=== PATIENT | female | born 1955 | race American Indian/Alaskan Native ===

== ENCOUNTER 2018-10-31 22:03 | Inpatient (IN) | payer OTHER ==
[2018-10-31] MEDS ORDERED: ASPIRIN PO ONE (23:56)
--- NOTE | 2018-11-01 00:48 | XRay Report ---
PROCEDURE: XR CHEST 1V AP TECHNIQUE: Chest radiograph single view. HISTORY: Chest Pain COMPARISONS: None . FINDINGS: Heart: Normal. Mediastinum/Vessels: Normal. Lungs/Pleural space: Normal. Bony thorax: No acute osseous abnormality. Life support devices: None. IMPRESSION: No acute cardiopulmonary abnormality. This document is electronically signed by Jessica Ayala DO., November 01 2018 12:46:02 AM ET
[2018-11-01 00:50] LABS: Calcium 8.9 mg/dL (8.4-10.2)
[2018-11-01 01:13] LABS: Chol/HDL Ratio 3.84 %
[2018-11-01 02:01] LABS: Hematocrit 35.6 % (30.3-42.9); Hemoglobin 12.5 gm/dl (10.1-14.3); Mean Corpuscular HGB Conc 35 % (30-34); Mean Corpuscular Volume 90 fl (79-97); Platelet Count 401 K/mm3 (140-440); Red Blood Count 3.94 M/mm3 (3.65-5.03); Red Cell Distribution Width 15.8 % (13.2-15.2)
[2018-11-01] MEDS ORDERED: ZOFRAN IV ONE (03:35)
[2018-11-01] MEDS ORDERED: SUBLIMAZE IV ONE (03:35)
[2018-11-01] MEDS ORDERED: PLAVIX PO ONE (03:35)
--- NOTE | 2018-11-01 03:45 | Emergency Department Report ---
HPI - General Chief Complaint: Chest Pain Time Seen by Provider: 11/01/18 03:27 - HPI HPI: Room 24 The patient is a 62-year-old female presenting with a chief complaint of chest pain. The patient states the past 3 weeks she's had left-sided chest pain d escribed as a heaviness. The patient states she's had shortness of breath and nausea/vomiting associated with her chest pain. Patient denies diaphoresis. The patient gives her pain a score of 10/10 Location: Left chest Duration: 3 weeks Quality: Heaviness Severity: 10/10 Modifying factors: [see above] Context: [see above] Mode of transportation: [not driving] ED Past Medical Hx - Past Medical History Previous Medical History?: Yes Hx Hypertension: Yes Hx Diabetes: Yes Hx Renal Disease: Yes Additional medical history: Heart problems - Surgical History Past Surgical History?: Yes Hx Appendectomy: Yes Additional Surgical History: Colostomy - Family History Family history: no significant - Social History Smoking Status: Never Smoker Substance Use Type: None (denies illicit drug use) ED Review of Systems ROS: Stated complaint: PAIN IN CHEST/DIZZY/FALLING Other details as noted in HPI Constitutional: denies: diaphoresis Eyes: denies: eye pain ENT: denies: throat pain Respiratory: shortness of breath Cardiovascular: chest pain Endocrine: no symptoms reported Gastrointestinal: nausea, vomiting Genitourinary: denies: dysuria Musculoskeletal: denies: back pain Neurological: denies: headache Physical Exam - Physical Exam Vital Signs: Vital Signs 10/31/18 23:44 Temperature 97.3 F L Pulse Rate 72 Respiratory 20 Rate Blood Pressure 108/54 O2 Sat by Pulse 96 Oximetry Physical Exam: GENERAL: The patient is well-developed thin elderly woman lying on stretcher not appearing to be in acute distress HEENT: Normocephalic. Atraumatic. Extraocular motions are intact. Patient has moist mucous membranes. NECK: Supple. Trachea midline CHEST/LUNGS: Clear to auscultation. There is no respiratory distress noted. HEART/CARDIOVASCULAR: Regular. There is no tachycardia. There is no gallop rub or murmur. ABDOMEN: Abdomen is soft, nontender. Patient has normal bowel sounds. There is no abdominal distention. SKIN: There is no rash. There is no edema. There is no diaphoresis. NEURO: The patient is awake, alert, and oriented. The patient is cooperative. The patient has normal speech MUSCULOSKELETAL: There is no evidence of acute injury. ED Course Vital Signs 10/31/18 23:44 Temperature 97.3 F L Pulse Rate 72 Respiratory 20 Rate Blood Pressure 108/54 O2 Sat by Pulse 96 Oximetry ED Medical Decision Making - Lab Data Result diagrams: 11/01/18 00:02 11/01/18 00:02 Laboratory Tests 11/01/18 11/01/18 11/01/18 00:02 00:02 00:04 WBC 3.6 L RBC 3.94 Hgb 12.5 Hct 35.6 MCV 90 MCH 32 MCHC 35 H RDW 15.8 H Plt Count 401 Lymph % (Auto) Web Art Director Woodruff % (Auto) Web Art Director Eos % (Auto) Web Art Director Baso % (Auto) Web Art Director Lymph # Web Art Director Woodruff # Web Art Director Eos # Web Art Director Baso # Web Art Director Seg Neutrophils % Web Art Director Seg Neutrophils # Web Art Director Sodium 130 L Potassium 5.0 Chloride 96.3 L Carbon Dioxide 21 L Anion Gap 18 BUN 38 H Creatinine 1.5 H Estimated GFR 43 BUN/Creatinine Ratio 25 Glucose 304 H POC Glucose 282 H Calcium 8.9 Troponin T 0.066 H Triglycerides 261 H Cholesterol 227 H LDL Cholesterol Direct 141 H HDL Cholesterol 59 Cholesterol/HDL Ratio 3.84 - EKG Data -: EKG Interpreted by Me EKG shows normal: sinus rhythm Rate: normal - EKG Data When compared to previous EKG there are: previous EKG unavailable Interpretation: nonspecific ST-T wave kendall, other (left bundle branch block) - Radiology Data Radiology results: report reviewed (chest x-ray), image reviewed (chest x-ray) interpreted by me: Chest x-ray-no focal infiltrates, no pneumothorax Findings [facility] [address] [place] [address] XRay Report Signed Patient: JOSE MIGUEL DELACRUZ MR#: [id number] : 1955 Acct:[id number] Age/Sex: 62 / F ADM Date: 10/31/18 Loc: ED Attending Dr: Ordering Physician: PHONG MORALES MD Date of Service: 10/31/18 Procedure(s): XR chest 1V ap Accession Number(s): [id number] cc: PHONG MORALES MD Fluoro Time In Minutes: PROCEDURE: XR CHEST 1V AP TECHNIQUE: Chest radiograph single view. HISTORY: Chest Pain COMPARISONS: None . FINDINGS: Heart: Normal. Mediastinum/Vessels: Normal. Lungs/Pleural space: Normal. Bony thorax: No acute osseous abnormality. Life support devices: None. IMPRESSION: No acute cardiopulmonary abnormality. This document is electronically signed by Jessica Ayala DO., November 01 2018 12:46:02 AM ET Transcribed By: [facility] [place] Dictated By: JESSICA AYALA MD Electronically Authenticated By: JESSICA AYALA MD Signed Date/Time: 11/01/1847 DD/ TD/TT: 11/01/1828 - Differential Diagnosis ACS, pericarditis, GERD Critical care attestation.: If time is entered above; I have spent that time in minutes in the direct care of this critically ill patient, excluding procedure time. ED Disposition Clinical Impression: Chest pain, Elevated troponin Disposition: -09 OP ADMIT IP TO THIS HOSP Is pt being admited?: Yes Does the pt Need Aspirin: No Condition: Fair Instructions: Chest Pain (ED) Referrals: PRIMARY CARE, [Primary Care Provider] - 3-5 Days Time of Disposition: 03:50 (hospitalist paged (Dr. Kassy Valentin))
[2018-11-01] MEDS ORDERED: ASPIRIN ONE (04:06)
[2018-11-01] MEDS ORDERED: SODIUM CHLORIDE FLUSH SYRINGE 10 ML IV PRN (05:39)
[2018-11-01] MEDS ORDERED: D50W (25GM) Syringe IV PRN ×2 (05:39→05:54)
[2018-11-01] MEDS ORDERED: TYLENOL PO PRN (05:39)
--- NOTE | 2018-11-01 05:54 | History and Physical Report ---
History of Present Illness Date of examination: 11/01/18 History of present illness: 62-year-old history of hypertension, diabetes comes emergency room with complaints of abdominal pain and chest pain that started 3 days ago. Describes chest pain as sharp, intermittent over 10 minutes, in the left chest, no radiation, intensity 5/10, cannot identify exacerbating or relieving factors. Admit to nausea vomiting, shortness of breath. She states she had diarrhea but that has not been resolved. Also complained of abdominal pain in the mid Abdomen, sharp, intermittent, never this along the muscular, no radiation 6/10. Review of systems Constitutional: no weight loss, chills, fever Ears, eyes, nose, mouth and throat: no nasal congestion, no nasal discharge, no sinus pressure, no vision change, no red eye. Neck: No neck pain or rigidity. Cardiovascular: no palpitations, chest pain Respiratory: no cough, shortness of breath Gastrointestinal: no hematochezia, abdominal pain Genitourinary : no frequency , no hematuria Musculoskeletal: no joint swelling or muscle ache Integumentary: no rash, no pruritis Neurological: no parathesias, no focal weakness Endocrine: no cold or heat intolerance, no polyuria or polydipsia Hematologic/Lymphatic: no easy bruising, no easy bleeding, no gland swelling Allergic/Immunologic: no urticaria, no angioedema. PAST MEDICAL HISTORY: hypertension, diabetes PAST SURGICAL HISTORY: Appendectomy, colostomy SOCIAL HISTORY: Denies alcohol, drugs, tobacco FAMILY HISTORY: Hypertension Medications and Allergies Allergies Allergy/AdvReac Type Severity Reaction Status Date / Time No Known Allergies Allergy Verified 11/01/18 03:28 Active Meds: Active Medications Acetaminophen (Tylenol) 650 mg PO Q4H PRN PRN Reason: Pain MILD(1-3)/Fever >100.5/MCCOY Dextrose (D50w (25gm) Syringe) 50 ml IV PRN PRN PRN Reason: Hypoglycemia Ondansetron HCl (Zofran) 4 mg IV Q8H PRN PRN Reason: Nausea And Vomiting Sodium Chloride (Sodium Chloride Flush Syringe 10 Ml) 10 ml IV BID MAGEN Sodium Chloride (Sodium Chloride Flush Syringe 10 Ml) 10 ml IV PRN PRN PRN Reason: LINE FLUSH Exam - Physical Exam Narrative exam: General Apperance: The patient lying in bed, breathing comfortable HEENT: Normocephalic, atraumatic. Pupils equally round and reactive to light, EOMI, no sclericterus or JVD or thyromegaly or nodule. , no carotid bruit, mucous membranes moist, no exudate or erythema Heart: S1-S2, regular is rhythm Lungs: Clear to auscultation bilaterally, breathing comfortable Abdomen: Positive bowel sounds, soft, nontender, nondistended, no organomegaly Extremities: No edema cyanosis clubbing Skin: no rash, nodule, warm and dry Neuro: cranial nerves 2-12 intact, speech is fluent, motor/sensory intact - Constitutional Vitals: Temp Pulse Resp BP Pulse Ox 97.3 F L 77 13 137/79 96 10/31/18 23:44 11/01/18 04:46 11/01/18 04:46 11/01/18 04:46 10/31/18 23:44 Results - Labs CBC & Chem 7: 11/01/18 00:02 11/01/18 00:02 Labs: Abnormal lab results 11/01/18 11/01/18 11/01/18 Range/Units 00:02 00:02 00:04 WBC 3.6 L (4.5-11.0) K/mm3 MCHC 35 H (30-34) % RDW 15.8 H (13.2-15.2) % Sodium 130 L (137-145) mmol/L Chloride 96.3 L (98-107) mmol/L Carbon Dioxide 21 L (22-30) mmol/L BUN 38 H (7-17) mg/dL Creatinine 1.5 H (0.7-1.2) mg/dL Glucose 304 H (65-100) mg/dL POC Glucose 282 H (70-105) Troponin T 0.066 H (0.00-0.029) ng/mL Triglycerides 261 H (2-149) mg/dL Cholesterol 227 H (50-199) mg/dL LDL Cholesterol Direct 141 H (50-130) mg/dL 11/01/18 Range/Units 03:13 WBC (4.5-11.0) K/mm3 MCHC (30-34) % RDW (13.2-15.2) % Sodium (137-145) mmol/L Chloride (98-107) mmol/L Carbon Dioxide (22-30) mmol/L BUN (7-17) mg/dL Creatinine (0.7-1.2) mg/dL Glucose (65-100) mg/dL POC Glucose (70-105) Troponin T 0.064 H (0.00-0.029) ng/mL Triglycerides (2-149) mg/dL Cholesterol (50-199) mg/dL LDL Cholesterol Direct (50-130) mg/dL - Imaging and Cardiology EKG: image reviewed Chest x-ray: report reviewed Assessment and Plan Assessment Abdominal pain Chest pain Hypertension Diabetes Acute renal insufficiency Plan Admit to medicine Check cardiac enzymes, consult cardiology obtain CAT scan of the abdomen and pelvis Start IV fluid, Percocet Check fingersticks initiate insulin sliding scale DVT prophylaxis
[2018-11-01 06:20] LABS: Creatine Kinase MB 5.8 ng/mL (0.0-4.0)
--- NOTE | 2018-11-01 06:25 | Cat Scan Report ---
PROCEDURE: CT ABDOMEN PELVIS WO CON TECHNIQUE: Routine axial imaging was obtained of the abdomen and pelvis without oral or IV contrast. Sagittal and coronal reconstructions were reviewed. HISTORY: abd pain COMPARISONS: None FINDINGS: The study is limited without IV and oral contrast-enhanced. There is elevation of left hemidiaphragm. There are no infiltrates or effusions in the lung bases. The liver, gallbladder and biliary tree appear normal. The pancreas, spleen and adrenal glands appear normal. The kidneys reveal moderate left-sided hydronephrosis. Stones are not seen in either kidney. The ureters cannot be followed into the pelvis because of a limited amount of surrounding fat in the tissues. There are small calcifications in the pelvis. An occult stone in the distal left ureter can not entirely be ruled out. The bowel loops are not distended. There is a large amount of retained feces in the colon. The append ix cannot be seen. In the pelvis the bladder reveals mild generalized wall thickening. Underlying cys titis cannot be exclude. The uterus appears normal. The skeletal structures do not show any acute kendall nges. IMPRESSION: Moderate left-sided hydronephrosis as described. The distal left ureter cannot be followed into the p alber[place]. An obstructing stone in the distal left ureter cannot entirely be ruled out. Renal sonography including evaluation of bladder to look for ureteral jets would be helpful for further evaluation. Generalized bladder wall thickening. Underlying cystitis cannot be excluded.. This document is electronically signed by Bryant Dasilva MD., November 01 2018 06:23:01 AM ET
[2018-11-01] MEDS: HumaLOG SUB-Q SCH ×4 (06:31→23:50)
[2018-11-01] MEDS: SODIUM CHLORIDE FLUSH SYRINGE 10 ML IV SCH ×2 (10:01→21:45)
--- NOTE | 2018-11-01 12:58 | Event Note ---
Date: 11/01/18 Cardiology note dictated #1 chest pain atypical #2 abdominal pain nausea and vomiting evaluation in progress #3 hypertension #4 diabetes #5 hyperlipidemia #6 abnormal troponin #7 renal insufficiency We'll obtain a echocardiogram for further cardiac evaluation. Mild elevation of troponin in the face of her abnormal renal function is of questionable significance. Once his abdominal symptoms improved will consider obtaining a nuclear stress test for further ischemic evaluation. Thank you Dr. MILKA Hendricks
[2018-11-01 14:06] LABS: Creatine Kinase MB 5.7 ng/mL (0.0-4.0)
[2018-11-01] MEDS: NACL 0.9% 1000 ML 1,000 ML IV SCH (14:40)
[2018-11-01] MEDS: ZOFRAN IV PRN (14:52)
--- NOTE | 2018-11-01 15:51 | Event Note ---
Date: 11/01/18 Patient was admitted this morning with abdominal pain in chest pain Underwent CT abdomen and pelvis, revealed Lt hydronephrosis, possible obstructing stone in the distal left ureter, generalized bladder wall thickening, possible underlying cystitis. Patient was seen by cardiology, workup in progress Patient is chronically ill looking, emaciated, cachectic In mild distress Vital signs reviewed. 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[employer]; alert awake oriented 3 nonfocal Psych; normal mood cooperative Musculoskeletal; no deformity Skin; no rash or lesions Assessment and plan; --Left hydronephrosis/possible left ureteric stone; renal ultrasound, IV fluids, urology consult --Acute renal failure; creatinine 1.5, unknown baseline Obstructive uropathy, closely monitor --Chest pain/non-ST elevation MN; Continue current cardiac medications Cardiology evaluation noted and appreciated Follow cardiac workup --Severe malnutrition; Nutrition supplements, nutrition consult --Hypertension; management antihypertensives When necessary medications --Type 2 diabetes mellitus; Accu-Cheks sliding-scale coverage Patient is nothing by mouth, we will add long-acting insulin when able to eat Check A1c --Dyslipidemia; patient is nothing by mouth now Start statin --DVT prophylaxis; SCDs --Full CODE STATUS; Monitor patient closely and adjust management as needed Follow cardiology, hematology recommendations. Plan of care reviewed with the patient and her Nurse Advance care plan 32 minutes
--- NOTE | 2018-11-01 17:18 | Consultation ---
History of Present Illness - Reason for Consult Consult date: 11/01/18 lower abdominal pain - History of Present Illness 62-year-old history of hypertension, diabetes comes emergency room with co mplaints of abdominal pain and chest pain that started 3 days ago. Describes chest pain as sharp, intermittent over 10 minutes, in the left chest, no radiation, intensity 5/10, cannot identify exacerbating or relieving factors. Admit to nausea vomiting, shortness of breath. She states she had diarrhea but that has not been resolved. Also complained of abdominal pain in the mid Abdomen, sharp, intermittent, never this along the muscular, no radiation 6/10. The patient reports to me that she has had pain in her lower abdomen for 2 days with associated dysuria. CT demonstrates a bladder which has findings suggestive of a neurogenic bladder or cystitis. She has left-sided hydronephrosis which I suspect is chronic. Review of systems Constitutional: no weight loss, chills, fever Ears, eyes, nose, mouth and throat: no nasal congestion, no nasal discharge, no sinus pressure, no vision change, no red eye. Neck: No neck pain or rigidity. Cardiovascular: no palpitations, chest pain Respiratory: no cough, shortness of breath Gastrointestinal: no hematochezia, abdominal pain Genitourinary : no frequency , no hematuria Musculoskeletal: no joint swelling or muscle ache Integumentary: no rash, no pruritis Neurological: no parathesias, no focal weakness Endocrine: no cold or heat intolerance, no polyuria or polydipsia Hematologic/Lymphatic: no easy bruising, no easy bleeding, no gland swelling Allergic/Immunologic: no urticaria, no angioedema. PAST MEDICAL HISTORY: hypertension, diabetes PAST SURGICAL HISTORY: Appendectomy, colostomy SOCIAL HISTORY: Denies alcohol, drugs, tobacco FAMILY HISTORY: Hypertension Medications and Allergies Allergies Allergy/AdvReac Type Severity Reaction Status Date / Time No Known Allergies Allergy Verified 11/01/18 03:28 Home Medications Medication Instructions Recorded Confirmed Last Taken Type No Known Home Medications [No 11/01/18 11/01/18 Unknown History Reported Home Medications] Active Meds: Active Medications Acetaminophen (Tylenol) 650 mg PO Q4H PRN PRN Reason: Pain MILD(1-3)/Fever >100.5/MCCOY Aspirin (Aspirin) 325 mg PO QDAY MAGEN Atorvastatin Calcium (Lipitor) 40 mg PO QHS MAGEN Dextrose (D50w (25gm) Syringe) 50 ml IV PRN PRN PRN Reason: Hypoglycemia Enoxaparin Sodium (Lovenox) 30 mg SUB-Q QDAY MAGEN Hydralazine HCl (Apresoline) 10 mg IV Q4HR PRN PRN Reason: Hypertension Sodium Chloride (Nacl 0.9% 1000 Ml) 1,000 mls @ 100 mls/hr IV DIRECT MAGEN Last Admin: 11/01/18 14:40 Dose: 100 mls/hr Documented by: Insulin Human Lispro (Humalog) 0 unit SUB-Q Q6HR [facility]; Protocol Last Admin: 11/01/18 13:54 Dose: Not Given Documented by: Metoprolol Tartrate (Lopressor) 25 mg PO BID [facility] Morphine Sulfate (Morphine) 1 mg IV Q6H PRN PRN Reason: Pain, Moderate (4-6) Ondansetron HCl (Zofran) 4 mg IV Q8H PRN PRN Reason: Nausea And Vomiting Last Admin: 11/01/18 14:52 Dose: 4 mg Documented by: Sodium Chloride (Sodium Chloride Flush Syringe 10 Ml) 10 ml IV BID [facility] Last Admin: 11/01/18 10:01 Dose: 10 ml Documented by: Sodium Chloride (Sodium Chloride Flush Syringe 10 Ml) 10 ml IV PRN PRN PRN Reason: LINE FLUSH Review of Systems All systems: negative (see HPI) Exam - Constitutional Vitals: Temp Pulse Resp BP Pulse Ox 97.6 F 67 20 175/97 96 11/01/18 12:17 11/01/18 16:23 11/01/18 16:23 11/01/18 12:17 10/31/18 23:44 General appearance: Present: no acute distress - EENT Eyes: Present: EOM intact ENT: hearing intact - Respiratory Respiratory effort: normal - Abdominal General gastrointestinal: Present: tender (pelvic discomfort) - Psychiatric Psychiatric: appropriate mood/affect, cooperative Results - Labs CBC & Chem 7: 11/01/18 00:02 11/01/18 00:02 Labs: Abnormal lab results 11/01/18 11/01/18 11/01/18 Range/Units 00:02 00:02 00:04 WBC 3.6 L (4.5-11.0) K/mm3 MCHC 35 H (30-34) % RDW 15.8 H (13.2-15.2) % Sodium 130 L (137-145) mmol/L Chloride 96.3 L (98-107) mmol/L Carbon Dioxide 21 L (22-30) mmol/L BUN 38 H (7-17) mg/dL Creatinine 1.5 H (0.7-1.2) mg/dL Glucose 304 H (65-100) mg/dL POC Glucose 282 H (70-105) CK-MB (CK-2) (0.0-4.0) ng/mL CK-MB (CK-2) Rel Index (0-4) Troponin T 0.066 H (0.00-0.029) ng/mL Triglycerides 261 H (2-149) mg/dL Cholesterol 227 H (50-199) mg/dL LDL Cholesterol Direct 141 H (50-130) mg/dL 11/01/18 11/01/18 11/01/18 Range/Units 03:13 05:45 12:18 WBC (4.5-11.0) K/mm3 MCHC (30-34) % RDW (13.2-15.2) % Sodium (137-145) mmol/L Chloride (98-107) mmol/L Carbon Dioxide (22-30) mmol/L BUN (7-17) mg/dL Creatinine (0.7-1.2) mg/dL Glucose (65-100) mg/dL POC Glucose 186 H (70-105) CK-MB (CK-2) 5.8 H (0.0-4.0) ng/mL CK-MB (CK-2) Rel Index 6.5 H (0-4) Troponin T 0.064 H 0.078 H D (0.00-0.029) ng/mL Triglycerides (2-149) mg/dL Cholesterol (50-199) mg/dL LDL Cholesterol Direct (50-130) mg/dL 11/01/18 Range/Units 12:39 WBC (4.5-11.0) K/mm3 MCHC (30-34) % RDW (13.2-15.2) % Sodium (137-145) mmol/L Chloride (98-107) mmol/L Carbon Dioxide (22-30) mmol/L BUN (7-17) mg/dL Creatinine (0.7-1.2) mg/dL Glucose (65-100) mg/dL POC Glucose (70-105) CK-MB (CK-2) 5.7 H (0.0-4.0) ng/mL CK-MB (CK-2) Rel Index 9.3 H (0-4) Troponin T 0.084 H (0.00-0.029) ng/mL Triglycerides (2-149) mg/dL Cholesterol (50-199) mg/dL LDL Cholesterol Direct (50-130) mg/dL - Imaging and Cardiology CT scan - abdomen: report reviewed, image reviewed CT scan - pelvis: report reviewed, image reviewed Assessment and Plan 62-year-old female with pelvic discomfort, dysuria, and left-sided mild hydronephrosis. Recommend Malhotra catheter placement and urine culture with antibiotics. Suspect left-sided hydronephrosis is chronic given the bladder findings. Patient is nontoxic appearing. Given active cardiac issues, recommend renal ultrasound on Sunday. Do not see a reason for urgent intervention. Discussed with urology who agrees with the plan.
--- NOTE | 2018-11-01 17:24 | Consultation ---
History of Present Illness - Reason for Consult Consult date: 11/01/18 - History of Present Illness CC: WINNIE ROPER (NEW PT TO OUR SERVICE) The patient is a 62-year-old female presenting with a chief complaint of chest pain. The patient states the past 3 weeks she's had left-sided chest pain described as a heaviness. The patient states she's had shortness of breath and nausea/vomiting associated with her chest pain. Patient denies diaphoresis. The patient gives her pain a score of 10/10 CTAP (11-01-18) TODAY--LEFT HYDRO(MILD) ABD SOFT - HEALED SURGICAL SCAR A/P CHEST PAIN - DR. ROBERSON ON CONSULT LEFT HYDRO WILL FOLLOW CONSERVATIVELY FOR NOW IR CONSULT - CONSIDER PERC ONLY IF NEEDED URGERNTLY (SPOKE WITH DR. KHAN) RECOMMEND ORTIZ Medications and Allergies Allergies Allergy/AdvReac Type Severity Reaction Status Date / Time No Known Allergies Allergy Verified 11/01/18 03:28 Home Medications Medication Instructions Recorded Confirmed Last Taken Type No Known Home Medications [No 11/01/18 11/01/18 Unknown History Reported Home Medications] Active Meds: Active Medications Acetaminophen (Tylenol) 650 mg PO Q4H PRN PRN Reason: Pain MILD(1-3)/Fever >100.5/MCCOY Aspirin (Aspirin) 325 mg PO QDAY MAGEN Atorvastatin Calcium (Lipitor) 40 mg PO QHS MAGEN Dextrose (D50w (25gm) Syringe) 50 ml IV PRN PRN PRN Reason: Hypoglycemia Enoxaparin Sodium (Lovenox) 30 mg SUB-Q QDAY MAGEN Hydralazine HCl (Apresoline) 10 mg IV Q4HR PRN PRN Reason: Hypertension Sodium Chloride (Nacl 0.9% 1000 Ml) 1,000 mls @ 100 mls/hr IV DIRECT MAGEN Last Admin: 11/01/18 14:40 Dose: 100 mls/hr Documented by: Insulin Human Lispro (Humalog) 0 unit SUB-Q Q6HR MAGEN; Protocol Last Admin: 11/01/18 13:54 Dose: Not Given Documented by: Metoprolol Tartrate (Lopressor) 25 mg PO BID MAGEN Morphine Sulfate (Morphine) 1 mg IV Q6H PRN PRN Reason: Pain, Moderate (4-6) Ondansetron HCl (Zofran) 4 mg IV Q8H PRN PRN Reason: Nausea And Vomiting Last Admin: 11/01/18 14:52 Dose: 4 mg Documented by: Sodium Chloride (Sodium Chloride Flush Syringe 10 Ml) 10 ml IV BID MAGEN Last Admin: 11/01/18 10:01 Dose: 10 ml Documented by: Sodium Chloride (Sodium Chloride Flush Syringe 10 Ml) 10 ml IV PRN PRN PRN Reason: LINE FLUSH Exam - Constitutional Vitals: Temp Pulse Resp BP Pulse Ox 97.6 F 67 20 175/97 96 11/01/18 12:17 11/01/18 16:23 11/01/18 16:23 11/01/18 12:17 10/31/18 23:44 Results - Labs CBC & Chem 7: 11/01/18 00:02 11/01/18 00:02 Labs: Abnormal lab results 11/01/18 11/01/18 11/01/18 Range/Units 00:02 00:02 00:04 WBC 3.6 L (4.5-11.0) K/mm3 MCHC 35 H (30-34) % RDW 15.8 H (13.2-15.2) % Sodium 130 L (137-145) mmol/L Chloride 96.3 L (98-107) mmol/L Carbon Dioxide 21 L (22-30) mmol/L BUN 38 H (7-17) mg/dL Creatinine 1.5 H (0.7-1.2) mg/dL Glucose 304 H (65-100) mg/dL POC Glucose 282 H (70-105) CK-MB (CK-2) (0.0-4.0) ng/mL CK-MB (CK-2) Rel Index (0-4) Troponin T 0.066 H (0.00-0.029) ng/mL Triglycerides 261 H (2-149) mg/dL Cholesterol 227 H (50-199) mg/dL LDL Cholesterol Direct 141 H (50-130) mg/dL 11/01/18 11/01/18 11/01/18 Range/Units 03:13 05:45 12:18 WBC (4.5-11.0) K/mm3 MCHC (30-34) % RDW (13.2-15.2) % Sodium (137-145) mmol/L Chloride (98-107) mmol/L Carbon Dioxide (22-30) mmol/L BUN (7-17) mg/dL Creatinine (0.7-1.2) mg/dL Glucose (65-100) mg/dL POC Glucose 186 H (70-105) CK-MB (CK-2) 5.8 H (0.0-4.0) ng/mL CK-MB (CK-2) Rel Index 6.5 H (0-4) Troponin T 0.064 H 0.078 H D (0.00-0.029) ng/mL Triglycerides (2-149) mg/dL Cholesterol (50-199) mg/dL LDL Cholesterol Direct (50-130) mg/dL 11/01/18 Range/Units 12:39 WBC (4.5-11.0) K/mm3 MCHC (30-34) % RDW (13.2-15.2) % Sodium (137-145) mmol/L Chloride (98-107) mmol/L Carbon Dioxide (22-30) mmol/L BUN (7-17) mg/dL Creatinine (0.7-1.2) mg/dL Glucose (65-100) mg/dL POC Glucose (70-105) CK-MB (CK-2) 5.7 H (0.0-4.0) ng/mL CK-MB (CK-2) Rel Index 9.3 H (0-4) Troponin T 0.084 H (0.00-0.029) ng/mL Triglycerides (2-149) mg/dL Cholesterol (50-199) mg/dL LDL Cholesterol Direct (50-130) mg/dL
[2018-11-01] MEDS: MORPHINE IV PRN (17:44)
[2018-11-01] MEDS: APRESOLINE IV PRN (17:48)
[2018-11-01 19:40] LABS: Bacteria,Urine 3+ /HPF (Negative); Bilirubin,Urine NEG (Negative); Blood,Urine SM (Negative); Color,Urine Yellow (Yellow); Mucus,Urine FEW /HPF; Urobilinogen,Urine < 2.0 mg/dL (<2.0)
[2018-11-01 19:41] LABS: WBC,Urine > 182.0 /HPF (0.0-6.0)
[2018-11-01] MEDS: LOPRESSOR PO SCH (21:44)
--- NOTE | 2018-11-01 23:41 | Consultation ---
CARDIOLOGY EVALUATION HISTORY OF PRESENT ILLNESS: The patient is a 62-year-old female, who is known to have had hypertension and diabetes, came to the Emergency Room complaining of mainly upper abdominal pain and some chest discomfort. The patient is seen for cardiac evaluation because of the chest pain. Chest pain itself is described as occasional sharp pains. It is rather difficult to get historic details from this patient because she does not speak much [place]. Her main complaint is nausea and vomiting as well as abdominal discomfort. REVIEW OF SYSTEMS: Difficult to obtain. Chart is reviewed. PHYSICAL EXAMINATION: GENERAL: Adult chronically ill-appearing female, in no acute distress. She looks much older than the stated age. NECK: Supple. No thyromegaly. Both carotids are palpable. CHEST: Symmetrical. LUNGS: Essentially clear. HEART: S1 and S2 are heard well. ABDOMEN: Soft, nontender. EXTREMITIES: No edema or calf tenderness. LABORATORY DATA: EKG sinus rhythm, left bundle branch block with associated ST-T abnormalities. WBC 3.6, hemoglobin 12.5, hematocrit 35.6. Sodium 130, potassium 5, BUN 38, creatinine 1.5. Blood sugar 186. Troponin is 0.06 and 0.07. LDL 141. IMPRESSION: 1. Atypical chest pain. 2. Abnormal EKG with a left bundle branch block pattern. 3. Abdominal pain, nausea, and vomiting, etiology uncertain. 4. Mild elevation of troponin in the phase of abnormal renal function of questionable significance. The patient is seen for cardiac evaluation. Clinically, cardiac status is satisfactory. PLAN: At this time plan is to obtain echocardiogram for further assessment. Once the abdominal symptoms, nausea and vomiting improve, we may consider nuclear stress test for further cardiac evaluation. The patient will be monitored and followed along with you. Thank you, Dr. Raymond for allowing me to participate in the care of this pleasant lady. JOB# [id number] DUNCAN/AMA MTDEli
[2018-11-02] MEDS: NACL 0.9% 1000 ML 1,000 ML IV SCH ×2 (04:10→14:53)
[2018-11-02] MEDS: HumaLOG SUB-Q SCH ×3 (05:48→17:27)
[2018-11-02 06:21] LABS: Basophils % (Auto) 0.4 % (0.0-1.8); Eosinophils % (Auto) 1.1 % (0.0-4.3); Hematocrit 30.9 % (30.3-42.9); Hemoglobin 11.1 gm/dl (10.1-14.3); Lymphocytes # (Auto) 0.9 K/mm3 (1.2-5.4); Lymphocytes % (Auto) 21.5 % (13.4-35.0); Mean Corpuscular HGB Conc 36 % (30-34); Mean Corpuscular Volume 89 fl (79-97); Monocytes # (Auto) 0.2 K/mm3 (0.0-0.8); Monocytes % (Auto) 5.4 % (0.0-7.3); Red Blood Count 3.47 M/mm3 (3.65-5.03)
[2018-11-02 06:51] LABS: Calcium 8.2 mg/dL (8.4-10.2)
[2018-11-02 07:16] LABS: Platelet Count 398 K/mm3 (140-440)
--- NOTE | 2018-11-02 08:10 | Progress Note ---
Assessment and Plan Assessment and plan: --Chest pain/non-ST elevation OR; Continue current cardiac medications Cardiology following, workup in progress --Left hydronephrosis/possible left ureteric stone; renal ultrasound, IV fluids, follow-up renal Ultrasound Urology and IR evaluation and recommendation appreciated --Acute renal failure; the vasomotor nephropathy Obstructive uropathy,Resolved --Urinary tract infection; IV fluids, empiric IV antibiotics Follow urine cultures --Severe malnutrition; Nutrition supplements, nutrition consult --Mild hyponatremia; normal saline gentle hydration Closely monitor electrolytes --Hypertension; continue antihypertensives When necessary medications --Type 2 diabetes mellitus; Accu-Cheks sliding-scale coverage we will add glipizide, A1c 8.5 --Dyslipidemia; patient is nothing by mouth now Start statin --DVT prophylaxis; SCDs --Full CODE STATUS; History Interval history: Patient seen and examined medical records reviewed Patient feels slightly better, denies any nausea vomiting or abdominal pain Patient is comfortable ,Vital signs noted Hospitalist Physical - Constitutional Vitals: Temp Pulse Resp BP Pulse Ox 97.9 F 64 18 108/74 98 11/02/18 04:09 11/02/18 06:00 11/02/18 04:09 11/02/18 04:09 11/02/18 04:09 General appearance: Present: no acute distress, cachectic, other (comfortable) - EENT Eyes: Present: PERRL, EOM intact - Neck Neck: Present: supple, normal ROM - Respiratory Respiratory effort: normal Respiratory: bilateral: diminished, negative: rales, rhonchi, wheezing - Cardiovascular Rhythm: regular Heart Sounds: Present: S1 & S2 - Extremities Extremities: no ischemia, No edema - Abdominal General gastrointestinal: soft, non-tender, non-distended, normal bowel sounds - Integumentary Integumentary: Present: clear, warm - Psychiatric Psychiatric: appropriate mood/affect, cooperative - Neurologic Neurologic: moves all extremities Results - Labs CBC & Chem 7: 11/02/18 05:52 11/02/18 05:52 Labs: Laboratory Last Values WBC 4.0 K/mm3 (4.5-11.0) L 11/02/18 05:52 RBC 3.47 M/mm3 (3.65-5.03) L 11/02/18 05:52 Hgb 11.1 gm/dl (10.1-14.3) 11/02/18 05:52 Hct 30.9 % (30.3-42.9) 11/02/18 05:52 MCV 89 fl (79-97) 11/02/18 05:52 MCH 32 pg (28-32) 11/02/18 05:52 MCHC 36 % (30-34) H 11/02/18 05:52 RDW 16.0 % (13.2-15.2) H 11/02/18 05:52 Plt Count 398 K/mm3 (140-440) 11/02/18 05:52 Lymph % (Auto) 21.5 % (13.4-35.0) 11/02/18 05:52 Orange % (Auto) 5.4 % (0.0-7.3) 11/02/18 05:52 Eos % (Auto) 1.1 % (0.0-4.3) 11/02/18 05:52 Baso % (Auto) 0.4 % (0.0-1.8) 11/02/18 05:52 Lymph # 0.9 K/mm3 (1.2-5.4) L 11/02/18 05:52 Orange # 0.2 K/mm3 (0.0-0.8) 11/02/18 05:52 Eos # 0.0 K/mm3 (0.0-0.4) 11/02/18 05:52 Baso # 0.0 K/mm3 (0.0-0.1) 11/02/18 05:52 Seg Neutrophils % 71.6 % (40.0-70.0) H 11/02/18 05:52 Seg Neutrophils # 2.8 K/mm3 (1.8-7.7) 11/02/18 05:52 Sodium 132 mmol/L (137-145) L 11/02/18 05:52 Potassium 4.6 mmol/L (3.6-5.0) 11/02/18 05:52 Chloride 98.3 mmol/L (98-107) 11/02/18 05:52 Carbon Dioxide 22 mmol/L (22-30) 11/02/18 05:52 Anion Gap 16 mmol/L 11/02/18 05:52 BUN 38 mg/dL (7-17) H 11/02/18 05:52 Creatinine 1.2 mg/dL (0.7-1.2) 11/02/18 05:52 Estimated GFR 55 ml/min 11/02/18 05:52 BUN/Creatinine Ratio 32 % 11/02/18 05:52 Glucose 208 mg/dL (65-100) H 11/02/18 05:52 POC Glucose 125 (70-105) H 11/02/18 07:56 Hemoglobin A1c 8.5 % (4-6) H 11/02/18 05:52 Calcium 8.2 mg/dL (8.4-10.2) L 11/02/18 05:52 Total Creatine Kinase 61 units/L (30-135) 11/01/18 12:39 CK-MB (CK-2) 5.7 ng/mL (0.0-4.0) H 11/01/18 12:39 CK-MB (CK-2) Rel Index 9.3 (0-4) H 11/01/18 12:39 Troponin T 0.084 ng/mL (0.00-0.029) H 11/01/18 12:39 Triglycerides 261 mg/dL (2-149) H 11/01/18 00:02 Cholesterol 227 mg/dL (50-199) H 11/01/18 00:02 LDL Cholesterol Direct 141 mg/dL (50-130) H 11/01/18 00:02 HDL Cholesterol 59 mg/dL (40-59) 11/01/18 00:02 Cholesterol/HDL Ratio 3.84 % 11/01/18 00:02 Urine Color Yellow (Yellow) 11/01/18 17:31 Urine Turbidity Cloudy (Clear) 11/01/18 17:31 Urine pH 6.0 (5.0-7.0) 11/01/18 17:31 Ur Specific Morris 1.009 (1.003-1.030) 11/01/18 17:31 Urine Protein 100 mg/dl mg/dL (Negative) 11/01/18 17:31 Urine Glucose (UA) Neg mg/dL (Negative) 11/01/18 17:31 Urine Ketones Neg mg/dL (Negative) 11/01/18 17:31 Urine Blood Sm (Negative) 11/01/18 17:31 Urine Nitrite Neg (Negative) 11/01/18 17:31 Urine Bilirubin Neg (Negative) 11/01/18 17:31 Urine Urobilinogen < 2.0 mg/dL (<2.0) 11/01/18 17:31 Ur Leukocyte Esterase Lg (Negative) 11/01/18 17:31 Urine WBC (Auto) > 182.0 /HPF (0.0-6.0) H 11/01/18 17:31 Urine RBC (Auto) 11.0 /HPF (0.0-6.0) 11/01/18 17:31 Urine Bacteria (Auto) 3+ /HPF (Negative) 11/01/18 17:31 Urine WBC Clumps 1+ /HPF 11/01/18 17:31 Urine Mucus Few /HPF 11/01/18 17:31 Active Medications - Current Medications Current Medications: Generic Name Dose Route Start Last Admin Trade Name Freq PRN Reason Stop Dose Admin Acetaminophen 650 mg 11/01/18 05:39 Tylenol PO Q4H PRN Pain MILD(1-3)/Fever >100.5/MCCOY Aspirin 325 mg 11/02/18 10:00 Aspirin PO QDAY [facility] Atorvastatin Calcium 40 mg 11/01/18 22:00 11/01/18 21:44 Lipitor PO 40 mg QHS MAGEN Administration Dextrose 50 ml 11/01/18 05:39 D50w (25gm) Syringe IV PRN PRN Hypoglycemia Enoxaparin Sodium 30 mg 11/02/18 10:00 Lovenox SUB-Q QDAY MAGEN Hydralazine HCl 10 mg 11/01/18 16:15 11/01/18 17:48 Apresoline IV 10 mg Q4HR PRN Administration Hypertension Sodium Chloride 1,000 mls @ 100 mls/hr 11/01/18 07:00 11/02/18 04:10 Nacl 0.9% 1000 Ml IV 100 mls/hr DIRECT MAGEN Administration Ceftriaxone Sodium 2 gm in 100 mls @ 200 mls/hr 11/02/18 10:00 Rocephin/Ns 2 Gm/100 Ml IV Q24HR MAGEN Protocol Insulin Human Lispro 0 unit 11/01/18 06:00 11/02/18 05:48 Humalog SUB-Q 3 unit Q6HR MAGEN Administration Protocol Metoprolol Tartrate 25 mg 11/01/18 22:00 11/01/18 21:44 Lopressor PO 25 mg BID MAGEN Administration Morphine Sulfate 1 mg 11/01/18 14:58 11/01/18 17:44 Morphine IV 1 mg Q6H PRN Administration Pain, Moderate (4-6) Ondansetron HCl 4 mg 11/01/18 05:39 11/01/18 14:52 Zofran IV 4 mg Q8H PRN Administration Nausea And Vomiting Sodium Chloride 10 ml 11/01/18 10:00 11/01/18 21:45 Sodium Chloride Flush Syringe 10 Ml IV 10 ml BID MAGEN Administration Sodium Chloride 10 ml 11/01/18 05:39 Sodium Chloride Flush Syringe 10 Ml IV PRN PRN LINE FLUSH
[2018-11-02] MEDS: LOPRESSOR PO SCH ×2 (10:11→23:08)
[2018-11-02] MEDS: ASPIRIN PO SCH (10:11)
[2018-11-02] MEDS: ROCEPHIN/NS 2 GM/100 ML 2 GM/100 ML BAG IV SCH (10:11)
[2018-11-02] MEDS: LOVENOX SUB-Q SCH (10:11)
[2018-11-02] MEDS: SODIUM CHLORIDE FLUSH SYRINGE 10 ML IV SCH ×2 (10:12→23:10)
--- NOTE | 2018-11-02 10:17 | Progress Note ---
Assessment and Plan Patient appears to be improving. No significant cardiac symptoms. Echocardiogram shows several moderate left ventricular systolic dysfunction EF is 35-40%. Will obtain a nuclear stress test for ischemia evaluation.. - Patient Problems (1) LV dysfunction Current Visit: Yes Status: Acute (2) LBBB (left bundle branch block) Current Visit: Yes Status: Acute (3) Chest pain Current Visit: Yes Status: Acute (4) Elevated troponin Current Visit: Yes Status: Acute Subjective Date of service: 11/02/18 Interval history: Prior developments are noted. Appears to be the abdominal pain is secondary to hydronephrosis. Patient appears to be more comfortable this morning denies any chest pain. Objective Vital Signs Temp Pulse Pulse Resp Resp BP Pulse Ox 11/02/18 08:13 98.1 F 18 130/76 11/02/18 06:00 64 11/02/18 04:09 97.9 F 64 18 108/74 98 11/02/18 00:26 97.4 F L 58 L 18 128/69 99 11/01/18 22:15 97 11/01/18 22:00 77 11/01/18 21:44 75 121/67 11/01/18 21:13 74 20 97 11/01/18 20:01 97.4 F L 74 16 121/67 97 11/01/18 17:48 68 164/87 11/01/18 17:44 20 11/01/18 16:23 67 20 11/01/18 16:22 20 11/01/18 12:17 97.6 F 18 175/97 11/01/18 11:49 97.8 F 11/01/18 11:40 98.1 F 11/01/18 11:30 70 12 151/88 11/01/18 11:00 73 13 102/51 11/01/18 10:30 70 13 128/81 - Physical Examination General: No Apparent Distress Neck: Positive: neck supple Cardiac: Positive: Regular Rhythm Lungs: Positive: clear to auscultation Abdomen: Positive: Soft - Labs and Meds Cardiac Enzymes 11/01/18 Range/Units 12:39 CK-MB (CK-2) 5.7 H (0.0-4.0) ng/mL CBC 11/02/18 Range/Units 05:52 WBC 4.0 L (4.5-11.0) K/mm3 RBC 3.47 L (3.65-5.03) M/mm3 Hgb 11.1 (10.1-14.3) gm/dl Hct 30.9 (30.3-42.9) % Plt Count 398 (140-440) K/mm3 Lymph # 0.9 L (1.2-5.4) K/mm3 Quay # 0.2 (0.0-0.8) K/mm3 Eos # 0.0 (0.0-0.4) K/mm3 Baso # 0.0 (0.0-0.1) K/mm3 Comprehensive Metabolic Panel 11/02/18 Range/Units 05:52 Sodium 132 L (137-145) mmol/L Potassium 4.6 (3.6-5.0) mmol/L Chloride 98.3 (98-107) mmol/L Carbon Dioxide 22 (22-30) mmol/L BUN 38 H (7-17) mg/dL Creatinine 1.2 (0.7-1.2) mg/dL Glucose 208 H (65-100) mg/dL Calcium 8.2 L (8.4-10.2) mg/dL - Imaging and Cardiology EKG: image reviewed
--- NOTE | 2018-11-02 21:00 | Ultrasound Report ---
PROCEDURE: US RENAL BILAT TECHNIQUE: Real-time sonography in multiple planes of the kidneys, ureters and urinary bladder was p erformed with image documentation. HISTORY: Lt hydronephrosis/left ureteric stone COMPARISONS: None . FINDINGS: RIGHT kidney: Parenchymal echotexture is mildly increased. There is moderate degree of right hydronep hrosis without evidence of calculi. . Length: 10.5 x 5.7 x 5 cm. LEFT kidney: Mild degree of hydronephrosis is noted. Parenchymal echotexture is increased. No calculi are noted.. Length: cm. Bladder: [place] appear mildly thickened and irregular. Fluid is echogenic.. IMPRESSION: Bilateral hydronephrosis Increased parenchymal echotexture is consistent with medical renal disease Echogenic fluid in the bladder is suggestive of hemorrhagic urine Thickened urinary bladder [place] may represent cystitis or detrusor muscle hypertrophy. This document is electronically signed by Todd Logan MD., November 02 2018 08:59:03 PM ET
[2018-11-02] MEDS: ZOFRAN IV PRN (23:09)
[2018-11-02] MEDS: MORPHINE IV PRN (23:09)
[2018-11-03] MEDS: NACL 0.9% 1000 ML 1,000 ML IV SCH (02:21)
[2018-11-03] MEDS: APRESOLINE IV PRN (05:54)
[2018-11-03] MEDS: HumaLOG SUB-Q SCH ×3 (05:59→12:25)
[2018-11-03 09:42] LABS: BUN/Creatinine Ratio 26; Blood Urea Nitrogen 29 mg/dL (7-17); Hemolysis Index 23
[2018-11-03] MEDS: LOVENOX SUB-Q SCH (09:45)
[2018-11-03] MEDS: LOPRESSOR PO SCH ×2 (09:45→22:00)
[2018-11-03] MEDS: ASPIRIN PO SCH (09:45)
[2018-11-03] MEDS: ROCEPHIN/NS 2 GM/100 ML 2 GM/100 ML BAG IV SCH (09:45)
[2018-11-03] MEDS: SODIUM CHLORIDE FLUSH SYRINGE 10 ML IV SCH ×2 (09:46→22:04)
--- NOTE | 2018-11-03 11:36 | Progress Note ---
Assessment and Plan No significant change in the cardiac status. Patient will need a nuclear stress test for ischemic evaluation in the future however because of the acute pain and acute issues we will wait. No specific contraindication is noted if Patient does need a urologic procedure to treat the hydronephrosis. - Patient Problems (1) LV dysfunction Current Visit: Yes Status: Acute (2) LBBB (left bundle branch block) Current Visit: Yes Status: Acute (3) Chest pain Current Visit: Yes Status: Acute (4) Elevated troponin Current Visit: Yes Status: Acute Subjective Date of service: 11/03/18 Interval history: Patient is complaining of left upper quadrant pain no significant chest pain today Objective Vital Signs Temp Pulse Resp Resp BP Pulse Ox 11/03/18 07:00 68 11/03/18 05:54 62 181/78 11/03/18 04:43 98.1 F 62 18 181/78 100 11/03/18 00:23 98.3 F 69 18 145/79 100 11/02/18 23:39 20 11/02/18 23:08 67 152/85 11/02/18 22:00 20 11/02/18 19:31 98.1 F 67 18 152/85 98 11/02/18 19:21 63 11/02/18 11:38 98.0 F 18 111/64 - Physical Examination General: No Apparent Distress (patient appears to be more lethargic today and appears to be uncomfortable.), Other HEENT: Positive: Other Neck: Positive: neck supple, Other (tracheostomy in place) Cardiac: Positive: Reg Rate and Rhythm Lungs: Positive: clear to auscultation (marked left upper quadrant tenderness) Abdomen: Positive: Soft, Tender (left upper quadrant) Skin: Positive: Clear Extremities: Present: normal - Labs and Meds Comprehensive Metabolic Panel 11/03/18 Range/Units 08:27 Sodium 133 L (137-145) mmol/L Potassium 4.4 (3.6-5.0) mmol/L Chloride 101.3 (98-107) mmol/L Carbon Dioxide 20 L (22-30) mmol/L BUN 29 H (7-17) mg/dL Creatinine 1.1 (0.7-1.2) mg/dL Glucose 136 H (65-100) mg/dL Calcium 8.0 L (8.4-10.2) mg/dL - Imaging and Cardiology EKG: image reviewed
[2018-11-03] MEDS: ZOFRAN IV PRN (16:40)
--- NOTE | 2018-11-03 18:48 | Progress Note ---
Assessment and Plan Assessment and plan: --Chest pain/non-ST elevation [place]; Continue current cardiac medications Cardiology following, possible stress test --Left hydronephrosis/possible left ureteric stone; renal ultrasound, IV fluids, follow-up renal US tomorrow Urology and IR following --Acute renal failure; vasomotor nephropathy Obstructive uropathy,Resolved --Urinary tract infection; IV fluids, empiric IV antibiotics Follow urine cultures --Severe malnutrition; Nutrition supplements, nutrition consult --Mild hyponatremia; normal saline gentle hydration Closely monitor electrolytes --Hypertension; continue antihypertensives When necessary medications --Type 2 diabetes mellitus; Accu-Cheks sliding-scale coverage we will add glipizide, A1c 8.5 --Dyslipidemia;on statin --DVT prophylaxis; SCDs --Full CODE STATUS; Continue current management Plan of care is reviewed with the patient and her nurse History Interval history: Patient seen and examined this morning medical records reviewed Patient feels slightly better no new complaints Alert awake oriented , vital Signs noted Hospitalist Physical - Constitutional Vitals: Temp Pulse Resp BP Pulse Ox 98.0 F 77 18 111/61 92 11/03/18 18:25 11/03/18 18:25 11/03/18 18:25 11/03/18 18:25 11/03/18 18:25 General appearance: Present: no acute distress, cachectic, other (comfortable) - EENT Eyes: Present: PERRL, EOM intact - Neck Neck: Present: supple, normal ROM - Respiratory Respiratory effort: normal Respiratory: bilateral: diminished, negative: rales, rhonchi, wheezing - Cardiovascular Rhythm: regular Heart Sounds: Present: S1 & S2 - Extremities Extremities: no ischemia, No edema - Abdominal General gastrointestinal: soft, non-tender, non-distended, normal bowel sounds - Integumentary Integumentary: Present: clear, warm - Psychiatric Psychiatric: appropriate mood/affect, cooperative - Neurologic Neurologic: CNII-XII intact, moves all extremities Results - Labs CBC & Chem 7: 11/02/18 05:52 11/03/18 08:27 Labs: Laboratory Last Values WBC 4.0 K/mm3 (4.5-11.0) L 11/02/18 05:52 RBC 3.47 M/mm3 (3.65-5.03) L 11/02/18 05:52 Hgb 11.1 gm/dl (10.1-14.3) 11/02/18 05:52 Hct 30.9 % (30.3-42.9) 11/02/18 05:52 MCV 89 fl (79-97) 11/02/18 05:52 MCH 32 pg (28-32) 11/02/18 05:52 MCHC 36 % (30-34) H 11/02/18 05:52 RDW 16.0 % (13.2-15.2) H 11/02/18 05:52 Plt Count 398 K/mm3 (140-440) 11/02/18 05:52 Lymph % (Auto) 21.5 % (13.4-35.0) 11/02/18 05:52 [place] % (Auto) 5.4 % (0.0-7.3) 11/02/18 05:52 Eos % (Auto) 1.1 % (0.0-4.3) 11/02/18 05:52 Baso % (Auto) 0.4 % (0.0-1.8) 11/02/18 05:52 Lymph # 0.9 K/mm3 (1.2-5.4) L 11/02/18 05:52 [place] # 0.2 K/mm3 (0.0-0.8) 11/02/18 05:52 Eos # 0.0 K/mm3 (0.0-0.4) 11/02/18 05:52 Baso # 0.0 K/mm3 (0.0-0.1) 11/02/18 05:52 Seg Neutrophils % 71.6 % (40.0-70.0) H 11/02/18 05:52 Seg Neutrophils # 2.8 K/mm3 (1.8-7.7) 11/02/18 05:52 Sodium 133 mmol/L (137-145) L 11/03/18 08:27 Potassium 4.4 mmol/L (3.6-5.0) 11/03/18 08:27 Chloride 101.3 mmol/L (98-107) 11/03/18 08:27 Carbon Dioxide 20 mmol/L (22-30) L 11/03/18 08:27 Anion Gap 16 mmol/L 11/03/18 08:27 BUN 29 mg/dL (7-17) H 11/03/18 08:27 Creatinine 1.1 mg/dL (0.7-1.2) 11/03/18 08:27 Estimated GFR > 60 ml/min 11/03/18 08:27 BUN/Creatinine Ratio 26 % 11/03/18 08:27 Glucose 136 mg/dL (65-100) H 11/03/18 08:27 POC Glucose 138 (70-105) H 11/03/18 16:41 Hemoglobin A1c 8.5 % (4-6) H 11/02/18 05:52 Calcium 8.0 mg/dL (8.4-10.2) L 11/03/18 08:27 Total Creatine Kinase 61 units/L (30-135) 11/01/18 12:39 CK-MB (CK-2) 5.7 ng/mL (0.0-4.0) H 11/01/18 12:39 CK-MB (CK-2) Rel Index 9.3 (0-4) H 11/01/18 12:39 Troponin T 0.084 ng/mL (0.00-0.029) H 11/01/18 12:39 Triglycerides 261 mg/dL (2-149) H 11/01/18 00:02 Cholesterol 227 mg/dL (50-199) H 11/01/18 00:02 LDL Cholesterol Direct 141 mg/dL (50-130) H 11/01/18 00:02 HDL Cholesterol 59 mg/dL (40-59) 11/01/18 00:02 Cholesterol/HDL Ratio 3.84 % 11/01/18 00:02 Urine Color Yellow (Yellow) 11/01/18 17:31 Urine Turbidity Cloudy (Clear) 11/01/18 17:31 Urine pH 6.0 (5.0-7.0) 11/01/18 17:31 Ur Specific [place] 1.009 (1.003-1.030) 11/01/18 17:31 Urine Protein 100 mg/dl mg/dL (Negative) 11/01/18 17:31 Urine Glucose (UA) Neg mg/dL (Negative) 11/01/18 17:31 Urine Ketones Neg mg/dL (Negative) 11/01/18 17:31 Urine Blood Sm (Negative) 11/01/18 17:31 Urine Nitrite Neg (Negative) 11/01/18 17:31 Urine Bilirubin Neg (Negative) 11/01/18 17:31 Urine Urobilinogen < 2.0 mg/dL (<2.0) 11/01/18 17:31 Ur Leukocyte Esterase Lg (Negative) 11/01/18 17:31 Urine WBC (Auto) > 182.0 /HPF (0.0-6.0) H 11/01/18 17:31 Urine RBC (Auto) 11.0 /HPF (0.0-6.0) 11/01/18 17:31 Urine Bacteria (Auto) 3+ /HPF (Negative) 11/01/18 17:31 Urine WBC Clumps 1+ /HPF 11/01/18 17:31 Urine Mucus Few /HPF 11/01/18 17:31 Active Medications - Current Medications Current Medications: Generic Name Dose Route Start Last Admin Trade Name Freq PRN Reason Stop Dose Admin Acetaminophen 650 mg 11/01/18 05:39 11/03/18 16:40 Tylenol PO 650 mg Q4H PRN Administration Pain MILD(1-3)/Fever >100.5/MCCOY Aspirin 325 mg 11/02/18 10:00 11/03/18 09:45 Aspirin PO 325 mg QDAY MAGEN Administration Atorvastatin Calcium 40 mg 11/01/18 22:00 11/02/18 23:07 Lipitor PO 40 mg QHS MAGEN Administration Dextrose 50 ml 11/01/18 05:39 D50w (25gm) Syringe IV PRN PRN Hypoglycemia Enoxaparin Sodium 40 mg 11/04/18 10:00 Lovenox SUB-Q QDAY@1000 MAGEN Hydralazine HCl 10 mg 11/01/18 16:15 11/03/18 05:54 Apresoline IV 10 mg Q4HR PRN Administration Hypertension Sodium Chloride 1,000 mls @ 100 mls/hr 11/01/18 07:00 11/03/18 02:21 Nacl 0.9% 1000 Ml IV 100 mls/hr DIRECT MAGEN Administration Ceftriaxone Sodium 2 gm in 100 mls @ 200 mls/hr 11/02/18 10:00 11/03/18 09:45 Rocephin/Ns 2 Gm/100 Ml IV 200 mls/hr Q24HR MAGEN Administration Protocol Insulin Human Lispro 0 unit 11/01/18 06:00 11/03/18 12:25 Humalog SUB-Q Not Given Q6HR [facility] Protocol Metoprolol Tartrate 25 mg 11/01/18 22:00 11/03/18 09:45 Lopressor PO 25 mg BID MAGEN Administration Morphine Sulfate 1 mg 11/01/18 14:58 11/02/18 23:09 Morphine IV 1 mg Q6H PRN Administration Pain, Moderate (4-6) Ondansetron HCl 4 mg 11/01/18 05:39 11/03/18 16:40 Zofran IV 4 mg Q8H PRN Administration Nausea And Vomiting Sodium Chloride 10 ml 11/01/18 10:00 11/03/18 09:46 Sodium Chloride Flush Syringe 10 Ml IV 10 ml BID MAGEN Administration Sodium Chloride 10 ml 11/01/18 05:39 Sodium Chloride Flush Syringe 10 Ml IV PRN PRN LINE FLUSH Nutrition/Malnutrition Assess - Dietary Evaluation Nutrition/Malnutrition Findings: Nutrition Notes Start: 11/02/18 14:05 Freq: Status: Active Protocol: Document 11/02/18 14:05 OL (Rec: 11/02/18 14:09 OL [id number]) Nutrition Notes Need for Assessment generated from: grocery sacker,MST Initial or Follow up Assessment Current Diagnosis Diabetes,Hypertension Current Diet cardiac Labs/Tests Na 132 glucose 208 A1c 8.5 Pertinent Medications Reviewed Height 5 ft 2 in Weight 44.4 kg [place] Body Weight (kg) 50.00 BMI 17.9 Weight Status Underweight Subjective/Other Information RD screen for malnutrition risk. Pt. with temporal and clavicular wasting. Intake is fair. Burn Absent Trauma Absent Minimum of two criteria Yes Body Fat Depletion Moderate depletion (severe) Muscle Mass Moderate Depletion (severe) #1 Nutrition Diagnosis Malnutrition Etiology predicted suboptimal energy intake As Evidenced by Signs and Symptoms depletion of body fat, depletion of muscle mass, BMI of 17.9 Is patient on ventilator? No Is Patient Ambulatory and/or Out of Bed No REE-([facility]-confined to bed) 1160.028 Kcal/Kg value to use for calculation 35 Approximate Energy Requirements Using 1554 kcal/Kg Calculation Used for Recommendations Kcal/kg Additional Notes protein (1.2-1.5g/kg): 53-67g fluid: 1mL/kcal or per MD Nutrition Intervention Change Diet Order: Continue cardiac. Add consistent CHO modification Add Supplement/Snack (indicate name/kcal Glucerna daily /protein ) Provides kCal: 220 Provides Protein (gm) 20 Goal #1 Diet + ONS to meet 75-100% of nutrient needs. Goal #2 Wt. maintenance/gain Follow-Up By: 11/04/18 Additional Comments f/u: intakes, need to increase ONS
[2018-11-04] MEDS: HumaLOG SUB-Q SCH ×4 (01:45→13:33)
[2018-11-04] MEDS: NACL 0.9% 1000 ML 1,000 ML IV SCH ×2 (05:47→21:36)
[2018-11-04] MEDS: ZOFRAN IV PRN (09:08)
[2018-11-04] MEDS: SODIUM CHLORIDE FLUSH SYRINGE 10 ML IV SCH ×2 (09:14→21:05)
[2018-11-04] MEDS: ASPIRIN PO SCH (10:00)
[2018-11-04] MEDS ORDERED: LEXISCAN IV ONE ×2 (11:26→11:36)
--- NOTE | 2018-11-04 12:26 | Progress Note ---
Assessment and Plan Assessment and plan: --Chest pain/non-ST elevation [place]; Stress test today, continue cardiac medications Cardiology following --Left hydronephrosis/possible left ureteric stone; renal ultrasound, IV fluids, continuous Malhotra catheterization, Repeat renal US today, Urology and IR following --Acute renal failure; vasomotor nephropathy Obstructive uropathy,Resolved --Urinary tract infection; IV fluids, empiric IV antibiotics Follow urine cultures --Severe malnutrition; Nutrition supplements, nutrition consult --Mild hyponatremia; normal saline gentle hydration Closely monitor electrolytes --Hypertension; continue antihypertensives When necessary medications --Type 2 diabetes mellitus; Accu-Cheks SSC Novolin 70/30, A1c 8.5 --Dyslipidemia;on statin --DVT prophylaxis; SCDs --Full CODE STATUS; Follow stress test, follow-up renal ultrasound Plan of care reviewed with the patient through the language line History Interval history: Patient seen and examined medical records reviewed[conversation through the language line] Patient is scheduled for stress test today No new complaints Vital signs noted Hospitalist Physical - Constitutional Vitals: Temp Pulse Resp BP Pulse Ox 98.1 F 63 18 114/59 98 11/03/18 19:40 11/04/18 08:00 11/04/18 08:00 11/04/18 11:57 11/04/18 08:00 General appearance: Present: no acute distress, cachectic, other (comfortable) - EENT Eyes: Present: PERRL, EOM intact - Neck Neck: Present: supple, normal ROM - Respiratory Respiratory effort: normal Respiratory: bilateral: diminished, negative: rales, rhonchi, wheezing - Cardiovascular Rhythm: regular Heart Sounds: Present: S1 & S2 - Extremities Extremities: no ischemia, No edema - Abdominal General gastrointestinal: soft, non-tender, non-distended, normal bowel sounds - Integumentary Integumentary: Present: clear, warm - Psychiatric Psychiatric: appropriate mood/affect, cooperative - Neurologic Neurologic: moves all extremities Results - Labs CBC & Chem 7: 11/02/18 05:52 11/03/18 08:27 Labs: Laboratory Last Values WBC 4.0 K/mm3 (4.5-11.0) L 11/02/18 05:52 RBC 3.47 M/mm3 (3.65-5.03) L 11/02/18 05:52 Hgb 11.1 gm/dl (10.1-14.3) 11/02/18 05:52 Hct 30.9 % (30.3-42.9) 11/02/18 05:52 MCV 89 fl (79-97) 11/02/18 05:52 MCH 32 pg (28-32) 11/02/18 05:52 MCHC 36 % (30-34) H 11/02/18 05:52 RDW 16.0 % (13.2-15.2) H 11/02/18 05:52 Plt Count 398 K/mm3 (140-440) 11/02/18 05:52 Lymph % (Auto) 21.5 % (13.4-35.0) 11/02/18 05:52 [place] % (Auto) 5.4 % (0.0-7.3) 11/02/18 05:52 Eos % (Auto) 1.1 % (0.0-4.3) 11/02/18 05:52 Baso % (Auto) 0.4 % (0.0-1.8) 11/02/18 05:52 Lymph # 0.9 K/mm3 (1.2-5.4) L 11/02/18 05:52 [place] # 0.2 K/mm3 (0.0-0.8) 11/02/18 05:52 Eos # 0.0 K/mm3 (0.0-0.4) 11/02/18 05:52 Baso # 0.0 K/mm3 (0.0-0.1) 11/02/18 05:52 Seg Neutrophils % 71.6 % (40.0-70.0) H 11/02/18 05:52 Seg Neutrophils # 2.8 K/mm3 (1.8-7.7) 11/02/18 05:52 Sodium 133 mmol/L (137-145) L 11/03/18 08:27 Potassium 4.4 mmol/L (3.6-5.0) 11/03/18 08:27 Chloride 101.3 mmol/L (98-107) 11/03/18 08:27 Carbon Dioxide 20 mmol/L (22-30) L 11/03/18 08:27 Anion Gap 16 mmol/L 11/03/18 08:27 BUN 29 mg/dL (7-17) H 11/03/18 08:27 Creatinine 1.1 mg/dL (0.7-1.2) 11/03/18 08:27 Estimated GFR > 60 ml/min 11/03/18 08:27 BUN/Creatinine Ratio 26 % 11/03/18 08:27 Glucose 136 mg/dL (65-100) H 11/03/18 08:27 POC Glucose 141 (70-105) H 11/04/18 06:22 Hemoglobin A1c 8.5 % (4-6) H 11/02/18 05:52 Calcium 8.0 mg/dL (8.4-10.2) L 11/03/18 08:27 Total Creatine Kinase 61 units/L (30-135) 11/01/18 12:39 CK-MB (CK-2) 5.7 ng/mL (0.0-4.0) H 11/01/18 12:39 CK-MB (CK-2) Rel Index 9.3 (0-4) H 11/01/18 12:39 Troponin T 0.084 ng/mL (0.00-0.029) H 11/01/18 12:39 Triglycerides 261 mg/dL (2-149) H 11/01/18 00:02 Cholesterol 227 mg/dL (50-199) H 11/01/18 00:02 LDL Cholesterol Direct 141 mg/dL (50-130) H 11/01/18 00:02 HDL Cholesterol 59 mg/dL (40-59) 11/01/18 00:02 Cholesterol/HDL Ratio 3.84 % 11/01/18 00:02 Urine Color Yellow (Yellow) 11/01/18 17:31 Urine Turbidity Cloudy (Clear) 11/01/18 17:31 Urine pH 6.0 (5.0-7.0) 11/01/18 17:31 Ur Specific [place] 1.009 (1.003-1.030) 11/01/18 17:31 Urine Protein 100 mg/dl mg/dL (Negative) 11/01/18 17:31 Urine Glucose (UA) Neg mg/dL (Negative) 11/01/18 17:31 Urine Ketones Neg mg/dL (Negative) 11/01/18 17:31 Urine Blood Sm (Negative) 11/01/18 17:31 Urine Nitrite Neg (Negative) 11/01/18 17:31 Urine Bilirubin Neg (Negative) 11/01/18 17:31 Urine Urobilinogen < 2.0 mg/dL (<2.0) 11/01/18 17:31 Ur Leukocyte Esterase Lg (Negative) 11/01/18 17:31 Urine WBC (Auto) > 182.0 /HPF (0.0-6.0) H 11/01/18 17:31 Urine RBC (Auto) 11.0 /HPF (0.0-6.0) 11/01/18 17:31 Urine Bacteria (Auto) 3+ /HPF (Negative) 11/01/18 17:31 Urine WBC Clumps 1+ /HPF 11/01/18 17:31 Urine Mucus Few /HPF 11/01/18 17:31 Active Medications - Current Medications Current Medications: Generic Name Dose Route Start Last Admin Trade Name Freq PRN Reason Stop Dose Admin Acetaminophen 650 mg 11/01/18 05:39 11/03/18 16:40 Tylenol PO 650 mg Q4H PRN Administration Pain MILD(1-3)/Fever >100.5/MCCOY Aspirin 325 mg 11/02/18 10:00 11/03/18 09:45 Aspirin PO 325 mg QDAY MAGEN Administration Atorvastatin Calcium 40 mg 11/01/18 22:00 11/03/18 22:00 Lipitor PO 40 mg QHS MAGEN Administration Dextrose 50 ml 11/01/18 05:39 D50w (25gm) Syringe IV PRN PRN Hypoglycemia Enoxaparin Sodium 40 mg 11/04/18 10:00 Lovenox SUB-Q QDAY@1000 MAGEN Hydralazine HCl 10 mg 11/01/18 16:15 11/03/18 05:54 Apresoline IV 10 mg Q4HR PRN Administration Hypertension Sodium Chloride 1,000 mls @ 75 mls/hr 11/01/18 07:00 11/04/18 05:47 Nacl 0.9% 1000 Ml IV 100 mls/hr DIRECT MAGEN Administration Ceftriaxone Sodium 2 gm in 100 mls @ 200 mls/hr 11/02/18 10:00 11/03/18 09:45 Rocephin/Ns 2 Gm/100 Ml IV 200 mls/hr Q24HR MAGEN Administration Protocol Insulin Human Isoph/Insulin Regular 6 unit 11/04/18 08:00 Humulin 70/30 SUB-Q BIDDIAB MAGEN Insulin Human Lispro 0 unit 11/01/18 06:00 11/04/18 06:32 Humalog SUB-Q Not Given Q6HR [facility] Protocol Metoprolol Tartrate 25 mg 11/01/18 22:00 11/03/18 22:00 Lopressor PO 25 mg BID MAGEN Administration Morphine Sulfate 1 mg 11/01/18 14:58 11/02/18 23:09 Morphine IV 1 mg Q6H PRN Administration Pain, Moderate (4-6) Ondansetron HCl 4 mg 11/01/18 05:39 11/04/18 09:08 Zofran IV 4 mg Q8H PRN Administration Nausea And Vomiting Sodium Chloride 10 ml 11/01/18 10:00 11/03/18 22:04 Sodium Chloride Flush Syringe 10 Ml IV 10 ml BID MAGEN Administration Sodium Chloride 10 ml 11/01/18 05:39 Sodium Chloride Flush Syringe 10 Ml IV PRN PRN LINE FLUSH Nutrition/Malnutrition Assess - Dietary Evaluation Nutrition/Malnutrition Findings: Nutrition Notes Start: 11/02/18 14:05 Freq: Status: Active Protocol: Document 11/02/18 14:05 OL (Rec: 11/02/18 14:09 OL [id number]) Nutrition Notes Need for Assessment generated from: rn utilization management um,MST Initial or Follow up Assessment Current Diagnosis Diabetes,Hypertension Current Diet cardiac Labs/Tests Na 132 glucose 208 A1c 8.5 Pertinent Medications Reviewed Height 5 ft 2 in Weight 44.4 kg [place] Body Weight (kg) 50.00 BMI 17.9 Weight Status Underweight Subjective/Other Information RD screen for malnutrition risk. Pt. with temporal and clavicular wasting. Intake is fair. Burn Absent Trauma Absent Minimum of two criteria Yes Body Fat Depletion Moderate depletion (severe) Muscle Mass Moderate Depletion (severe) #1 Nutrition Diagnosis Malnutrition Etiology predicted suboptimal energy intake As Evidenced by Signs and Symptoms depletion of body fat, depletion of muscle mass, BMI of 17.9 Is patient on ventilator? No Is Patient Ambulatory and/or Out of Bed No REE-([facility]-confined to bed) 1160.028 Kcal/Kg value to use for calculation 35 Approximate Energy Requirements Using 1554 kcal/Kg Calculation Used for Recommendations Kcal/kg Additional Notes protein (1.2-1.5g/kg): 53-67g fluid: 1mL/kcal or per MD Nutrition Intervention Change Diet Order: Continue cardiac. Add consistent CHO modification Add Supplement/Snack (indicate name/kcal Glucerna daily /protein ) Provides kCal: 220 Provides Protein (gm) 20 Goal #1 Diet + ONS to meet 75-100% of nutrient needs. Goal #2 Wt. maintenance/gain Follow-Up By: 11/04/18 Additional Comments f/u: intakes, need to increase ONS
[2018-11-04] MEDS: LOVENOX SUB-Q SCH (13:06)
[2018-11-04] MEDS: ROCEPHIN/NS 2 GM/100 ML 2 GM/100 ML BAG IV SCH (13:06)
--- NOTE | 2018-11-04 13:08 | Progress Note ---
Assessment and Plan s/p lexiscan MPI stress test this AM which was negative for ischemia, EF 53%. Currently stable cardiac status. Cont present cardiac regimen. Consider addition of ACEI/ARB if BPs permit. Nothing further to add from cardiac perspective at this time. Will sign off. Recommend follow up in our office with Dr. MILKA Hendricks within 1-2 weeks of hospital discharge ([phone]). The patient has been seen in conjunction with Dr. Choi who agrees with the assessment and plan of care. - Patient Problems (1) Chest pain Current Visit: Yes Status: Resolved (2) Elevated troponin Current Visit: Yes Status: Acute (3) LBBB (left bundle branch block) Current Visit: Yes Status: Acute (4) LV dysfunction Current Visit: Yes Status: Acute (5) Hydronephrosis, left Current Visit: Yes Status: Acute (6) Left ureteral stone Current Visit: Yes Status: Acute (7) UTI (urinary tract infection) Current Visit: Yes Status: Acute (8) HTN (hypertension) Current Visit: Yes Status: Chronic (9) Diabetes Current Visit: Yes Status: Chronic Subjective Date of service: 11/04/18 Principal diagnosis: cp Interval history: pt for stress test. no current cardiac complaints. Objective Last Vital Signs Temp 98.1 F 11/03/18 19:40 Pulse 63 11/04/18 08:00 Resp 18 11/04/18 08:00 BP 114/59 11/04/18 11:57 Pulse Ox 98 11/04/18 08:00 - Physical Examination General: No Apparent Distress HEENT: Positive: PERRL Neck: Positive: neck supple, Other (tracheostomy in place) Cardiac: Positive: Reg Rate and Rhythm, S1/S2 Lungs: Positive: Decreased Breath Sounds Neuro: Positive: Grossly Intact Abdomen: Positive: Soft, Tender (left upper quadrant) Skin: Positive: Clear Extremities: Present: normal - Imaging and Cardiology EKG: report reviewed, image reviewed Echo: report reviewed (EF 35-40%, mild LVH, abnormal diastolic function, trace AR, trace MR. ) - Telemetry EKG Rhythm: Sinus Rhythm
[2018-11-04] MEDS ORDERED: REGLAN IV ONE (13:11)
[2018-11-04] MEDS: LOPRESSOR PO SCH ×2 (17:57→21:02)
--- NOTE | 2018-11-05 00:46 | Treadmill Report ---
NUCLEAR CARDIAC IMAGING STUDY INDICATION FOR PROCEDURE: Chest pain. Informed consent was obtained. Rest and stress nuclear cardiac imaging were performed following the intravenous administration of 10 and 28 millicuries of technetium-99m Myoview per protocol. Vasodilator stress was achieved with intravenous Lexiscan per protocol. The rotating planar images were displayed and viewed on the computer console. A bull's eye polar map of the horizontal short axis slices was generated and reviewed. Images reviewed in the vertical long, horizontal long, and horizontal short axis projections. Gated SPECT imaging demonstrates a post-stress left ventricular ejection fraction of 53% with normal wall motion. Myocardial perfusion imaging demonstrates no significant cavity change between stress and rest. No significant stress-induced reversible perfusion defects were seen. Nuclear cardiac imaging demonstrates grossly normal post-stress left ventricular systolic function with no significant evidence for myocardial ischemia or necrosis. JOB# [id number] BOOM/AMA JURADO
[2018-11-05 07:20] LABS: BUN/Creatinine Ratio 22; Blood Urea Nitrogen 20 mg/dL (7-17); Calcium 7.6 mg/dL (8.4-10.2); Hemolysis Index 2
[2018-11-05] MEDS: LOVENOX SUB-Q SCH (09:34)
[2018-11-05] MEDS: LOPRESSOR PO SCH ×2 (09:34→21:18)
[2018-11-05] MEDS: ROCEPHIN/NS 2 GM/100 ML 2 GM/100 ML BAG IV SCH (09:35)
[2018-11-05] MEDS: SODIUM CHLORIDE FLUSH SYRINGE 10 ML IV SCH ×2 (09:35→21:18)
--- NOTE | 2018-11-05 11:17 | Ultrasound Report ---
ULTRASOUND RENAL BILATERAL HISTORY: Left hydronephrosis. TECHNIQUE: transabdominal ultrasound with color Doppler interrogation. COMPARISON: 11/01/18. FINDINGS: The right kidney measures 9.1cm. Right renal cortex: 1.3cm. The left kidney measures 11.4cm. Left renal cortex: 1.9cm. The kidneys are normal size, contour and position. There is increased renal cortical echotexture bilaterally consistent with nonspecific renal parenchymal disease. Corticomedullary differentiation is preserved. No evidence for cystic disease, mass, nephrolithiasis, hydronephrosis or perinephric fluid. Bilateral hydronephrosis has resolved since 11/01/18. The bladder is decompressed with a Malhotra catheter. IMPRESSION: Renal parenchymal disease. Bilateral hydronephrosis has resolved since 11/01/18.
[2018-11-05] MEDS: HumaLOG SUB-Q SCH ×4 (12:20→17:27)
--- NOTE | 2018-11-05 13:47 | Discharge Summary ---
Providers - Providers Date of Admission: 11/01/18 05:39 Date of discharge: 11/05/18 Attending physician: CADENCE JACKSON 11/01/18 16:24 Consult to Physician [CONS] Routine Comment: Consulting Provider: AMAYA GILLESPIE Physician Instructions: Reason For Exam: Lt Hydronephrosis/lt ureteric stone Primary care physician: [facility], [place] Hospitalization Reason for admission: Chest pain/Abdominal pain Condition: Fair Pertinent studies: CXR CT abd pelvis ECHO Renal US Stress test F/URenal US Hospital course: 63-year-old female patient with h/o hypertension, diabetes was admitted with abdominal pain and chest pain . Noted to have Lt hydronephrosis.Evaluated by Urology and IR ,symptomatically managed,improved with continuous gilliland catheterization. Evaluated by reservoir engineer ,stress test negative.Patient's symptoms improved, today feels better,no new complaints Vital signs stable,Physical exam unremarkable. Stable to dc ,f/u cardiology and urology upon discharge. Discharge Diagnosis: --Chest pain/non-ST elevation [place]; Stress test negative for ischemia,normal EF 53%, --Acute systolc CHF :ECHO : EF35-40% continue cardiac medications,No BARBARA inhibitors sec to hypotension Cardiology evaluated,f/u cardiology upon discharge --Left hydronephrosis/possible left ureteric stone; renal ultrasound, IV fluids, continuous Gilliland catheterization, F/U renal US hydronephrosis improved, Urology and IR following --Acute renal failure; vasomotor nephropathy Obstructive uropathy,Resolved --Urinary tract infection; IV fluids, empiric IV antibiotics Follow urine cultures --Severe malnutrition; Nutrition supplements, nutrition consult --Mild hyponatremia; normal saline gentle hydration Closely monitor electrolytes --Hypertension; continue antihypertensives When necessary medications --Type 2 diabetes mellitus; Accu-Cheks SSC Novolin 70/30, A1c 8.5 --Dyslipidemia;on statin Advised to f/u reservoir engineer Dr.Krishna Hendricks in 2-4 wks Stable at discharge Disposition: DC- TO HOME OR SELFCARE Time spent for discharge: 32 min Core Measure Documentation - Palliative Care Palliative Care/ Comfort Measures: Not Applicable - Core Measures Any of the following diagnoses?: heart failure, none - Heart Failure Discharge Requirements BARBARA/ARB for LVSD if EF <40%: No Reason for no BARBARA/ARB: Hypotension Beta raheem at discharge: Yes Exam - Constitutional Vitals: Temp Pulse Resp BP Pulse Ox 98.5 F 65 18 148/72 97 11/05/18 11:52 11/05/18 11:52 11/05/18 11:52 11/05/18 11:52 11/05/18 11:52 General appearance: Present: no acute distress, cachectic - EENT Eyes: Present: PERRL, EOM intact - Neck Neck: Present: supple, normal ROM - Respiratory Respiratory effort: normal Respiratory: bilateral: diminished, negative: rales, rhonchi, wheezing - Cardiovascular Rhythm: regular Heart Sounds: Present: S1 & S2 - Extremities Extremities: no ischemia, pulses intact - Abdominal General gastrointestinal: Present: soft, non-tender, non-distended, normal bowel sounds - Integumentary Integumentary: Present: clear, warm - Musculoskeletal Musculoskeletal: strength equal bilaterally - Psychiatric Psychiatric: appropriate mood/affect, cooperative - Neurologic Neurologic: CNII-XII intact, moves all extremities Plan Activity: advance as tolerated, fall precautions Diet: regular Additional Instructions: f/u urologist in 4 weeks Prescriptions: Aspirin [Aspirin BABY CHEW TAB] 81 mg PO QDAY #30 tab.chew Sulfamethoxazole/Trimethoprim [Bactrim DS TAB] 1 each PO BID #14 tablet metFORMIN [Glucophage] 500 mg PO BID #30 tablet AtorvaSTATin [Lipitor] 40 mg PO QHS #30 tablet Metoprolol [Lopressor TAB] 25 mg PO BID #60 tablet
[2018-11-06] MEDS: HumaLOG SUB-Q SCH ×3 (03:28→13:17)
[2018-11-06] MEDS: APRESOLINE IV PRN (05:41)
[2018-11-06] MEDS: ROCEPHIN/NS 2 GM/100 ML 2 GM/100 ML BAG IV SCH (10:13)
[2018-11-06] MEDS: LOPRESSOR PO SCH (10:14)
[2018-11-06] MEDS: SODIUM CHLORIDE FLUSH SYRINGE 10 ML IV SCH (10:14)
[2018-11-06] MEDS: LOVENOX SUB-Q SCH (10:14)
[2018-11-06 17:42] VITALS: BP 118/55
== END 2018-11-06 17:47 | disposition home or self-care (01) | DRG 682 ==
LOC: ED 22:03 → 4A 11-01 05:39
PROVIDERS: ADMIT Internal Medicine; ATTEND Internal Medicine
DX: N17.0 Acute kidney failure with tubular necrosis (principal); E43 Unspecified severe protein-calorie malnutrition; Z68.1 Body mass index [BMI] 19.9 or less, adult; E87.1 Hypo-osmolality and hyponatremia; R07.89 Other chest pain; E11.9 Type 2 diabetes mellitus without complications; I10 Essential (primary) hypertension; Z90.49 Acquired absence of other specified parts of digestive tract; Z82.49 Family history of ischemic heart disease and other diseases of the circulatory system; N13.6 Pyonephrosis; E78.5 Hyperlipidemia, unspecified; I44.7 Left bundle-branch block, unspecified
CPT/HCPCS: 36415; 71045; 74176; 76770; 78452; 80048; 80061; 81001; 82550; 82553; 82962; 83036; 84484; 85025; 87086; 87116; 93005; 93010; 93017; 93306; 96374; G0378; A9270-GY; A9502; J0360; J0696; J1650; J1815; J2270; J2405; J2765; J2785; J3010; J7030